=== PATIENT | male | born 1960 | race Caucasian/White ===

== ENCOUNTER 2018-12-05 20:52 | Inpatient (IN) | payer OTHER ==
[2018-12-05 20:56] VITALS: BMI 25.8
--- NOTE | 2018-12-05 21:15 | PDOC ---
History of Present Illness - General Chief Complaint: Alcohol intoxication Stated Complaint: ABDOMINAL PAIN/WITHDRAWL Time Seen by Provider: 12/05/18 21:15 History Source: Patient Exam Limitations: No Limitations - History of Present Illness Initial Comments: 12/05/18 21:37 58 year old male with PMH ETOH dependence, GIB, asthma BIBA to ED from [facility] for LLQ pain since 0600 today. Pt reported that his pain is constant, non- radiating, aggravated by movement, alleviated by rest, described as a pressure. Pt admitted to nausea/vomiting with ETOH use x7 days. Pt reported diarrhea x7 days, loose, denied blood. Pt denied chest pain, shortness of breath. Pt reported he went to [facility] today for detox, was sent to [facility], then after being at [facility] all day was told there are no beds, and was sent to ED for evaluation. ETOH - 20 beers a day, last drink yesterday Past History - Past Medical History Allergies/Adverse Reactions: Allergies Allergy/AdvReac Type Severity Reaction Status Date / Time No Known Allergies Allergy Verified 12/05/18 18:59 Home Medications: Ambulatory Orders Budesonide/Formeterol Fumarate [SYMBICORT 160/4.5mcg -] 2 puff IH BID inhaler 12/07/18 Folic Acid - 1 mg PO DAILY tablet 12/07/18 LORazepam [Ativan] 0.5 mg PO Q4H PRN tablet MDD 3 12/07/18 LORazepam [Ativan] 0.5 mg PO Q6H 1 Days tablet MDD 2 12/07/18 LORazepam [Ativan] 1 mg PO 0500,1100,1700,2300 tablet MDD 4 12/07/18 Levofloxacin [Levaquin] 500 mg PO Q24H #6 tablet 12/07/18 Multivitamins [Multivit ([facility] Formul[facility])] 1 tab PO DAILY tab 12/07/18 Pantoprazole Sodium [Protonix -] 40 mg PO DAILY #30 tablet.ec 12/07/18 Thiamine HCl [Vitamin B-1] 100 mg PO DAILY #30 tablet 12/07/18 metroNIDAZOLE [Flagyl -] 500 mg PO Q8H #6 tablet 12/07/18 Anemia: No Asthma: Yes Cancer: No Cardiac Disorders: No CVA: No COPD: No CHF: No Dementia: No Diabetes: No GI Disorders: Yes (GI bleed 2 years ago ETOH ) Disorders: No HTN: No Hypercholesterolemia: No Liver Disease: Yes (hep C treared ) Seizures: No Thyroid Disease: No - Suicide/Smoking/Psychosocial Hx Smoking History: Unknown if ever smoked Have you smoked in the past 12 months: No Information on smoking cessation initiated: No Hx Alcohol Use: Yes Drug/Substance Use Hx: No Substance Use Type: Alcohol Hx Substance Use Treatment: Yes ([facility] ten years ago) Review of Systems - Review of Systems Able to Perform ROS?: Yes Comments:: 12/05/18 21:43 General: denied fever, chills, generalized weakness. HEENT: denied sore throat, rhinorrhea, ear pain. Heart: denied chest pain, palpitations, syncope, diaphoresis. Respiratory: denied shortness of breath, cough, sputum production, hemoptysis. Abdomen: admitted to abdominal pain, nausea, vomiting, diarrhea. denied constipation, blood in stool. : denied dysuria, increased urinary frequency, hematuria, urinary incontinence , flank pain. Back: denied back pain. Musculoskeletal: denied joint pain, muscle pain, joint swelling. Neurological: admitted to tremors. denied headache, dizziness, numbness, tingling, weakness. Skin: denied rash, laceration, abrasion. *Physical Exam - Vital Signs Last Vital Signs Temp Pulse Resp BP Pulse Ox 97.9 F 61 20 146/93 99 12/05/18 20:54 12/05/18 20:54 12/05/18 20:54 12/05/18 20:54 12/05/18 20:54 - Physical Exam Comments: 12/05/18 21:43 Constitutional: Well-nourished, Well-developed, appearing stated age. HEENT: head is normocephalic, atraumatic. EOMI. PERRLA. tongue fasciculations. Neck: supple. Full ROM. Heart: regular rhythm. no murmurs, rubs or gallops. Lungs: clear to auscultation bilaterally. no crackles, rhonchi or wheezing. no stridor. Abdomen: soft, flat. tenderness to palpation of LLQ. normal bowel sounds. no rebound, guarding, masses. Extremities: peripheral pulses intact. no lower extremity edema. Neurological: tremors to hands. CN 2-12 grossly intact. moves all four extremities. Psych: awake, alert, oriented x3. follows commands. answers questions appropriately. ED Treatment Course - LABORATORY CBC & Chemistry Diagram: 12/05/18 21:27 12/07/18 05:32 Medical Decision Making - Medical Decision Making 12/05/18 21:44 58 year old male with above PMH presented to ED for LLQ pain, n/v/d, ETOH detox. Initial Vital Signs Temp Pulse Resp BP Pulse Ox 97.9 F 61 20 146/93 99 12/05/18 20:54 12/05/18 20:54 12/05/18 20:54 12/05/18 20:54 12/05/18 20:54 Afebrile No tachycardia. No tachypnea Hypertensive No hypoxia on room air Labs ordered: CBC, CMP, ETOH Imaging ordered: CT abdomen/pelvis with IV contrast Medications ordered: pepcid, maalox, zofran, ativan 2 mg IV once, banana bag EKG performed at 2241: rate 53, regular rhythm, normal axis, normal intervals, no acute ST changes. 12/05/18 22:00 CBC WBC 8.4 K/mm3 (4.0-10.0) 12/05/18 21: RBC 4.36 M/mm3 (4.00-5.60) 12/05/18 21:27 Hgb 12.5 GM/dL (11.7-16.9) 12/05/18 21: Hct 37.2 % (35.4-49) 12/05/18 21: MCV 85.3 fl (80-96) 12/05/18 21: MCH 28.7 pg (25.7-33.7) 12/05/18 21: MCHC 33.6 g/dl (32.0-35.9) 12/05/18 21: RDW 15.4 % (11.9-15.9) 12/05/18 21: Plt Count 295 K/MM3 (134-434) 12/05/18 21: MPV 7.4 fl (7.5-11.1) L 12/05/18 21:27 Absolute Neuts (auto) 5.4 K/mm3 (1.5-8.0) 12/05/18 21:27 Neutrophils % 64.2 % (42.8-82.8) 12/05/18 21:27 Lymphocytes % 22.2 % (8-40) 12/05/18 21:27 Monocytes % 9.8 % (3.8-10.2) 12/05/18 21:27 Eosinophils % 2.6 % (0-4.5) 12/05/18 21:27 Basophils % 1.2 % (0-2.0) 12/05/18 21: Nucleated RBC % 0 % (0-0) 12/05/18 21:27 No leukocytosis. No anemia. 12/05/18 22:08 CMP Sodium 140 mmol/L (136-145) 12/05/18 21:27 Potassium 3.3 mmol/L (3.5-5.1) L 12/05/18 21: Chloride 106 mmol/L (98-107) 12/05/18 21: Carbon Dioxide 26 mmol/L (21-32) 12/05/18 21: Anion Gap 9 MMOL/L (8-16) 12/05/18 21:27 BUN 8.6 mg/dL (7-18) 12/05/18 21:27 Creatinine 0.8 mg/dL (0.55-1.3) 12/05/18 21:27 Est GFR (CKD-EPI)AfAm 114.13 12/05/18 21:27 Est GFR (CKD-EPI)NonAf 98.47 12/05/18 21:27 Random Glucose 89 mg/dL (74-106) 12/05/18 21:27 Calcium 8.8 mg/dL (8.5-10.1) 12/05/18 21:27 Magnesium 2.2 mg/dL (1.8-2.4) 12/05/18 21:27 Total Bilirubin 0.5 mg/dL (0.2-1) 12/05/18 21:27 AST 94 U/L (15-37) H 12/05/18 21:27 ALT 121 U/L (13-61) H 12/05/18 21:27 Alkaline Phosphatase 90 U/L (45-117) 12/05/18 21:27 Total Protein 7.8 g/dl (6.4-8.2) 12/05/18 21:27 Albumin 3.7 g/dl (3.4-5.0) 12/05/18 21:27 Lipase 192 U/L (73-393) 12/05/18 21:27 Mild hypokalemia - pt is receiving IV fluids No DAVID Transaminitis Lipase wnl ETOH serum negative. CXR my and Dr. England's read: no infiltrate. no cardiomegaly. no free air. hiatal hernia containing bowel. -Pending official report 12/05/18 23:[address] Kraft about the case, who will be admitting the patient. He recommended Valium 5 mg IM once. Above ordered. 12/06/18 00:25 Pharmacy reported no Valium in the hospital. Admitting team informed. Medications ordered: Librium 50 mg PO once 12/07/18 02:00 Pt signed out to Dr. Daly, IM resident, who will assume care of the patient. 12/07/18 16:07 Follow up: CXR report: Chest: Abdominal pain. Alcohol withdrawal There are no prior studies for comparison. There is an elevated left hemidiaphragm with some minimal atelectasis at the left base but no sign of infiltrate or failure. The mediastinum is not widened. The bones and soft tissues are intact. Correlation recommended. Reported By: Derek Ortiz MD 12/06/[address] abdomen/pelvic report: [id number] CT/ABDOMEN PELVIS CT WITH CONTR Clinical history: 58-year-old man with lower quadrant pain and diarrhea. Comparison: None. Contiguous transaxial images were obtained from the diaphragmatic domes and pubic symphysis after the administration of IV contrast. Sagittal and coronal reconstructions were performed. Lung bases: Elevated left diaphragm with platelike atelectasis above. 2.5 mm right middle lobe nodule on image 20 of series #4. Follow as per Fleischner Society criteria. Bone: Bone island in right lumbar pedicle. Significant disc space narrowing L2-L3. Correlate clinically. Liver: There is an element of a fatty liver. Gallbladder: Negative. Biliary tree: Negative. Spleen: Accessory spleen. Pancreas: Negative. Adrenals: Negative. Kidneys: Negative. Pelvis: Negative. Bowel: Mild sigmoid diverticulosis. No CT evidence of diverticulitis. Wall thickening involving the distal sigmoid and rectum consistent with distal proctocolitis. Normal appendix. Other: Small hiatal hernia. Local hernia with fat. Impression: Suspect mild proctocolitis. Other findings as above. Study was initially read by Olivia. Addendum: Discussed with Dr. Win in the ER at 8:58 AM. Reported By: Derek Rojas MD 12/06/18 0900 *DC/Admit/Observation/Transfer Diagnosis at time of Disposition: Alcohol withdrawal, Abdominal pain - Discharge Dispostion Condition at time of disposition: Stable Decision to Admit order: Yes - Referrals - Patient Instructions - Post Discharge Activity
[2018-12-05] MEDS ORDERED: FOLIC ACID INJECTION - 1 MG, THIAMINE HCL 100 MG, MULTIVIT INJECTION ADULT 10 ML in SOD... IVPB ONE (21:16)
[2018-12-05] MEDS ORDERED: ONDANSETRON 4 MG/2 ML VIAL IVPUSH ONE (21:37)
[2018-12-05] MEDS ORDERED: FAMOTIDINE 20 MG/50 ML IVPB 20 MG/50 ML MG IVPB ONE ×2 (21:37→21:51)
[2018-12-05] MEDS ORDERED: MAG HYDROX/AL HYDROX/SIMETH 30 ML UNIT-DOSE CUP PO ONE (21:37)
[2018-12-05 21:38] LABS: BASO % 1.2 % (0-2.0); EOS % 2.6 % (0-4.5); HEMATOCRIT 37.2 % (35.4-49); HEMOGLOBIN 12.5 GM/dL (11.7-16.9); LYMPH % 22.2 % (8-40); MCH 28.7 pg (25.7-33.7); MCHC 33.6 g/dl (32.0-35.9); MEAN CELL VOLUME 85.3 fl (80-96); MEAN PLT VOLUME 7.4 fl (7.5-11.1); MONO % 9.8 % (3.8-10.2); NEUT % 64.2 % (42.8-82.8); PLATELET COUNT 295 K/MM3 (134-434); RBC 4.36 M/mm3 (4.00-5.60); RDW 15.4 % (11.9-15.9); WHITE BLOOD COUNT 8.4 K/mm3 (4.0-10.0)
[2018-12-05 21:48] LABS: INR 0.96 (0.83-1.09); PROTHROMBIN TIME (PATIENT) 11.3 SEC (9.7-13.0)
[2018-12-05] MEDS ORDERED: LORazepam 2 MG/ML SDV VIAL ONE (21:50)
[2018-12-05] MEDS ORDERED: MAG HYDROX/AL HYDROX/SIMETH 30 ML UNIT-DOSE CUP ONE (21:50)
[2018-12-05 21:51] LABS: ACTIVATED PTT 34.8 SECONDS (25.2-36.5)
[2018-12-05] MEDS ORDERED: ONDANSETRON 4 MG/2 ML VIAL ONE (21:51)
[2018-12-05 22:08] LABS: ALBUMIN 3.7 g/dl (3.4-5.0); BILIRUBIN,TOTAL 0.5 mg/dL (0.2-1); BLOOD UREA NITROGEN 8.6 mg/dL (7-18); CALCIUM 8.8 mg/dL (8.5-10.1); CREATININE 0.8 mg/dL (0.55-1.3); MAGNESIUM 2.2 mg/dL (1.8-2.4); POTASSIUM 3.3 mmol/L (3.5-5.1); TOT PROT 7.8 g/dl (6.4-8.2)
[2018-12-05] MEDS ORDERED: SODIUM CHLORIDE 1,000 ML IV STA (22:16)
--- NOTE | 2018-12-05 22:37 | PDOC ---
Documentation entered by Catalina Tarango SCRIBE, acting as scribe for Bridgette England DO. Bridgette England DO: This documentation has been prepared by the Sukhdeep goss Mackenzie, SCRIBE, under my direction and personally reviewed by me in its entirety. I confirm that the documentation accurately reflects all work , treatment, procedures, and medical decision making performed by me. Attending Attestation - Resident Resident Name: JoanaAlva - ED Attending Attestation I have performed the following: I have examined & evaluated the patient, The case was reviewed & discussed with the resident, I agree w/resident's findings & plan, Exceptions are as noted - HPI HPI: The patient is a 53 year old male, with a significant PMH of gastrointestinal bleeding, asthma, and ETOH dependence, who presents to the emergency department with left lower quadrant pain starting at approximately 6PM today. Patient describes his pain as a constant pressure localized to his left lower quadrant, alleviated when at rest and aggravated with movement. Patient also reports nausea, diarrhea, and vomiting accompanied by his alcohol use for the past 7 days. The patient denies hematochezia, chest pain, shortness of breath, headache and dizziness. Denies fever, chills, and constipation. Denies dysuria, frequency, urgency and hematuria. Allergies: NKA Past surgical history: None reported Social history: Significant alcohol use. No reported drug or tobacco use. 12/05/18 22:44 - Physicial Exam PE: GENERAL: Awake, alert, and fully oriented, speaking in full sentences, in no acute distress. HEAD: No signs of trauma EYES: PERRLA, EOMI, sclera anicteric, conjunctiva clear ENT: (+)Tongue fasciculations. (+)Mild dry mucosa. Auricles normal inspection, hearing grossly normal, nares patent, oropharynx clear without exudates. NECK: Normal ROM, supple, no lymphadenopathy, JVD, or masses LUNGS: Breath sounds equal, clear to auscultation bilaterally. No wheezes, and no crackles HEART: Regular rate and rhythm, normal S1 and S2, no murmurs, rubs or gallops ABDOMEN: (+)LLQ pain. Soft, normoactive bowel sounds. No guarding, no rebound. No masses BACK: (+)Mild left CVA tenderness. EXTREMITIES: Normal range of motion, no edema. No clubbing or cyanosis. No cords, erythema, or tenderness NEUROLOGICAL: (+)Tremulous. Cranial nerves II through XII grossly intact. Normal speech, normal gait SKIN: Warm, Dry, normal turgor, no rashes or lesions noted. 12/05/18 22:44 - Medical Decision Making 12/05/18 22:34 I, Dr. Bridgette England, DO, attest that this document has been prepared under my direction and personally reviewed by me in its entirety. I further attest, that it accurately reflects all work, treatment, procedures and medical decision -making performed by me. 12/05/18 22:34 a/p: 58yo male with 3 week hx of drinking 20 16ounce etoh beverages per day with request for detox and with LLQ pain -n/v with etoh use, no blood or bile -LLQ pain, last normal bm yesterday, loose stool today -hx of ? variceal bleed in the past, treated with endoscopy at a hospital in [place] -denies blood in vomitus or stool -pt arrives in etoh withdrawal- tongue fasciculations/tremulous -was at [facility] waiting for detox all day -pt with hx of etoh withdrawal, but no hx of seizures -last rehab was 2012 -will send labs, ct abd/pelvis for LLQ pain, ua -will give banana bag, ativan for etoh withdrawal -will give gi meds -pt will need admission for etoh withdrawal 12/05/18 23:39 labs reviewed mildly elevated lft pt pending ct imaging case discussed with Dr. Kraft who accepts pt to service for etoh withdrawal 12/05/18 23:48 cxr shows hiatal hernia Heart Score/ECG Review - ECG Intrepretation Comment:: 12/05/18 23:40 sinus nate at 53, nl axis, nl interval, no acute st/t wave findings
[2018-12-05] MEDS ORDERED: diazePAM CARPU-JECT 10 MG/2 ML DISP.SYRIN IM ONE (23:29)
--- NOTE | 2018-12-05 23:45 | PN ---
Teaching Attending Note Name of Resident: Fredo Daly ATTENDING PHYSICIAN STATEMENT I saw and evaluated the patient. I reviewed the resident's note and discussed the case with the resident. I agree with the resident's findings and plan as documented. SUBJECTIVE: Seen and examined; please refer to resident note for further historical details. Briefly, this is a 58 y/o male with a PMH significant for asthma and EtOH abuse presents to the ER for EtOH WD. His last drink was yesterday and he wants to stop drinking. Has been to rehab before. No SI/HI. Never had seizures/been intubated for WD but has experienced WD sx. He was drinking >20 beers/day for >2 weeks at home due to stress and intermittently abuses alcohol with more of a binge pattern. He does have a +CIWA of ~5 in the ER when I enocountered him and he endorses stress at home to contribute to his presentation. Denies any other substances of abuse. Will be placed on med surg. He was initially complaining of LLQ tenderness but this has completely resolved; this was associated with dry heaves without bleeding. Occasional watery diarrhea at home. 10 sys ROS done and negative aside from HPI PMH, PSH, FH, SH reviewed Home Medications Medication Instructions Recorded SYMBICORT 160/4.5mcg - 90 mcg IH PRN PRN 12/05/18 OBJECTIVE: VS, labs, imaging reviewed NAD, AAO, resting comfortably in bed NC AT EOMI PERRLA RRR s1/2 no mgr NT ND +BS CN2-12 wnl, no fnd CIWA 5. Slightly axious. No SI/HI. Aver[employer]e insight EKG reviewed CXR reviewed; large hiatal hernia noted ASSESSMENT AND PLAN: Patient presents for alcohol WD after binging for 2 weeks 1) EtOH WD -Monitor CIWA; PRN Ativan protocol. -Thiamine, folate, multivitamin. 75cc/hr LR overnight -Control nausea and vomiting. Monitor for diarrhea-may have been associated with the actual drinking as he hasn't had it since he arrived. -Detox eval in the AM 2) Hiatal hernia -Noted on CXR; consider OP referral 3) Hx Asthma -Continue home symbicort 4) Hx GIB -Control wretching sx; PRN zofran. Consult GI should he have further vomiting. 5) Transaminitis -Likely due to alcohol consumption
[2018-12-06] MEDS ORDERED: chlordiazePOXIDE HCL 25 MG CAPSULE PO ONE (00:26)
[2018-12-06] MEDS ORDERED: chlordiazePOXIDE HCL 25 MG CAPSULE ONE (00:33)
[2018-12-06 00:58] LABS: EPI CELLS 0.6 /HPF (0-5/HPF); HYALINE CASTS 6 /lpf (0-8); URINE APPEARANCE CLEAR; URINE BACTERIA 1.7 /hpf (NEGATIVE); URINE BILIRUBIN NEGATIVE (NEGATIVE); URINE COLOR YELLOW; URINE GLUCOSE (UA) NEGATIVE (NEGATIVE); URINE KETONE TRACE (NEGATIVE); URINE LEUK ESTERASE TRACE (NEGATIVE); URINE NITRITE NEGATIVE (NEGATIVE); URINE PROTEIN NEGATIVE (NEGATIVE); URINE RBC 1 /hpf (0-4); URINE UROBILINOGEN 0.2 mg/dL (0.2-1.0); URINE WBC 8 /hpf (0-5)
[2018-12-06] MEDS ORDERED: ONDANSETRON 4 MG/2 ML VIAL IVPUSH PRN (01:17)
--- NOTE | 2018-12-06 01:18 | HP ---
CHIEF COMPLAINT: LLQ Pain, EtoH withdrawal PCP: HISTORY OF PRESENT ILLNESS: Pt. is a 58 y.o. M w/ PMHx. of Depression/Anxiety, Asthma, Hepatitis C (treated) and EtOH abuse presents for EtOH withdrawal and LLQ Pain. Pt. was sent to [facility] because of a lack of beds at [facility] facility and then sent here because of a lack of beds at [facility]. Pt. states that he drinks about twenty 16 Oz. cans of beer each day for the last few weeks. Pt. states that he was dry having earlier but that nothing came up and denies any recent hematemesis. Pt. states that 2 years ago he was vomiting blood and that they did a "procedure and stopped the bleeding from his stomach. " Pt. endorses non-bloody diarrhea of 3 water and loose BMs for the last 7 days. Pt. denies any fever, dizziness, nausea, chest pain, shortness of breath, numbness/tingling, abdominal pain, hallucinations, paresthesias, or changes in urination. ER course was notable for: (1) (2) (3) Recent Travel: PAST MEDICAL HISTORY: As above PAST SURGICAL HISTORY: L. Knee meniscus repair Social History: Smoking: Denies Alcohol: 20 cans of 16 Oz. beer per day Drugs: Denies Allergies No Known Allergies Allergy (Verified 12/05/18 18:59) HOME MEDICATIONS: Home Medications Medication Instructions Recorded SYMBICORT 160/4.5mcg - 90 mcg IH PRN PRN 12/05/18 REVIEW OF SYSTEMS As above PHYSICAL EXAMINATION Vital Signs - 24 hr 12/05/18 20:54 Temperature 97.9 F Pulse Rate 61 Respiratory 20 Rate Blood Pressure 146/93 O2 Sat by Pulse 99 Oximetry (%) GENERAL: Awake, alert, and oriented to name only, in no acute distress. HEAD: Normal with no signs of trauma. EYES: Pupils equal, round and reactive to light, extraocular movements intact, sclera anicteric, conjunctiva clear. EARS, NOSE, THROAT: Ears normal, nares patent, oropharynx clear without exudates. Moist mucous membranes. NECK: Normal range of motion, supple without lymphadenopathy, JVD, or masses. LUNGS: Decreased breath sound on LLL, clear to auscultation bilaterally. No wheezes, and no crackles. No accessory muscle use. HEART: Regular rate and rhythm, normal S1 and S2 without murmur ABDOMEN: Soft, nontender, not distended, normoactive bowel sounds, no guarding, no rebound, no masses. No hepatomegaly or splenomegaly. MUSCULOSKELETAL: Normal range of motion at all joints. No bony deformities or tenderness. No CVA tenderness. UPPER EXTREMITIES: 2+ radial pulses, warm, well-perfused. No cyanosis. No clubbing. No peripheral edema. LOWER EXTREMITIES: 2+dorsal pedal pulses, warm, well-perfused. No calf tenderness. No peripheral edema. NEUROLOGICAL: Normal speech. PSYCHIATRIC: Cooperative. Good eye contact. Appropriate mood and affect. SKIN: Warm, dry, normal turgor, no rashes or lesions noted, normal capillary refill. Laboratory Results - last 24 hr 12/05/18 12/05/18 12/05/18 21:27 21:27 21:27 WBC 8.4 RBC 4.36 Hgb 12.5 Hct 37.2 MCV 85.3 MCH 28.7 MCHC 33.6 RDW 15.4 Plt Count 295 MPV 7.4 L Absolute Neuts (auto) 5.4 Neutrophils % 64.2 Lymphocytes % 22.2 Monocytes % 9.8 Eosinophils % 2.6 Basophils % 1.2 Nucleated RBC % 0 PT with INR 11.30 INR 0.96 PTT (Actin FS) 34.8 Sodium 140 Potassium 3.3 L Chloride 106 Carbon Dioxide 26 Anion Gap 9 BUN 8.6 Creatinine 0.8 Est GFR (CKD-EPI)AfAm 114.13 Est GFR (CKD-EPI)NonAf 98.47 Random Glucose 89 Calcium 8.8 Magnesium 2.2 Total Bilirubin 0.5 AST 94 H ALT 121 H Alkaline Phosphatase 90 Total Protein 7.8 Albumin 3.7 Lipase 192 Urine Color Urine Appearance Urine pH Ur Specific [place] Urine Protein Urine Glucose (UA) Urine Ketones Urine Blood Urine Nitrite Urine Bilirubin Urine Urobilinogen Ur Leukocyte Esterase Urine WBC (Auto) Urine RBC (Auto) Urine Casts (Auto) U Epithel Cells (Auto) Urine Bacteria (Auto) Alcohol, Quantitative 12/05/18 12/06/18 21:27 00:35 WBC RBC Hgb Hct MCV MCH MCHC RDW Plt Count MPV Absolute Neuts (auto) Neutrophils % Lymphocytes % Monocytes % Eosinophils % Basophils % Nucleated RBC % PT with INR INR PTT (Actin FS) Sodium Potassium Chloride Carbon Dioxide Anion Gap BUN Creatinine Est GFR (CKD-EPI)AfAm Est GFR (CKD-EPI)NonAf Random Glucose Calcium Magnesium Total Bilirubin AST ALT Alkaline Phosphatase Total Protein Albumin Lipase Urine Color Yellow Urine Appearance Clear Urine pH 6.0 Ur Specific [place] 1.023 Urine Protein Negative Urine Glucose (UA) Negative Urine Ketones Trace H Urine Blood Negative Urine Nitrite Negative Urine Bilirubin Negative Urine Urobilinogen 0.2 Ur Leukocyte Esterase Trace Urine WBC (Auto) 8 Urine RBC (Auto) 1 Urine Casts (Auto) 6 U Epithel Cells (Auto) 0.6 Urine Bacteria (Auto) 1.7 Alcohol, Quantitative < 3.0 ASSESSMENT/PLAN: Pt. is a 58 y.o. M w/ PMHx. of Depression/Anxiety, Asthma, Hepatitis C (treated ) and EtOH abuse presents for EtOH withdrawal and LLQ Pain #EtOH Withdrawal c/w Ativan Protocol given elevated LFTs CIWA score: 13-->9 CT AP: slightly prominent prostate, no acute pathology LLQ pain resolved after administration of IVF, Mylanta and famotidine c/w IV Protonix 40mg c/w Thiamine, Folic Acid and MVI IVF Fall precautions HOB elevated to 35 degrees trend LFTs Monitor for wretching and give PRN Zofran given Hx. of UGI bleed in 2017, concern for possible varices, please follow up with Hx. of previous GI bleed EKG- NSR, HR 53, QTc: 424 #Asthma c/w Symbicort 160/4.5 #FEN NS @ 75ml/hr monitor electrolytes and replete as needed--> repleted K, f/u Mg Regular Diet #DVT Ppx. Hep SQ Visit type - Emergency Visit Emergency Visit: Yes ED Registration Date: 12/05/18 Care time: The patient presented to the Emergency Department on the above date and was hospitalized for further evaluation of their emergent condition. - New Patient This patient is new to me today: Yes Date on this admission: 12/05/18 - Critical Care Critical Care patient: No
[2018-12-06] MEDS: SODIUM CHLORIDE 1,000 ML IV SCH (01:38)
[2018-12-06] MEDS: HEPARIN NA (PORCINE) 5,000 UNITS/ML 1ML VIAL SQ SCH ×3 (01:39→18:29)
[2018-12-06] MEDS ORDERED: POTASSIUM CHLORIDE TABS 20 MEQ TABLET.ER (FP) PO ONE ×2 (02:24→02:43)
[2018-12-06] MEDS ORDERED: SYMBICORT IH PRN (03:32)
[2018-12-06 09:57] LABS: ALBUMIN 3.3 g/dl (3.4-5.0); BILIRUBIN,TOTAL 0.6 mg/dL (0.2-1); BLOOD UREA NITROGEN 7.2 mg/dL (7-18); CALCIUM 8.5 mg/dL (8.5-10.1); CREATININE 0.7 mg/dL (0.55-1.3); PHOSPHOROUS 2.8 mg/dL (2.5-4.9); POTASSIUM 4.2 mmol/L (3.5-5.1); TOT PROT 7.1 g/dl (6.4-8.2)
[2018-12-06] MEDS: PANTOPRAZOLE SODIUM 40 MG VIAL IVPUSH SCH (10:30)
[2018-12-06] MEDS: MULTIVITAMINS (DAILY MVI) TABLET (FP) PO SCH (10:30)
[2018-12-06] MEDS: FOLIC ACID 1 MG TABLET (FP) PO SCH (10:30)
[2018-12-06] MEDS: BUDESONIDE/FORMETEROL FUMARATE 160/4.5 mcg INHALER IH SCH (10:30)
[2018-12-06] MEDS: THIAMINE HCL 200 MG/2 ML VIAL IVPB SCH (10:40)
[2018-12-06] MEDS: LORazepam 1 MG TABLET PO PRN ×3 (11:23→23:58)
--- NOTE | 2018-12-06 11:41 | EKG ---
Test Reason : Blood Pressure : / mmHG Vent. Rate : 053 BPM Atrial Rate : 053 BPM P-R Int : 164 ms QRS Dur : 094 ms QT Int : 444 ms P-R-T Axes : 025 034 043 degrees QTc Int : 416 ms SINUS BRADYCARDIA MINIMAL VOLTAGE CRITERIA FOR LVH, MAY BE NORMAL VARIANT NO PREVIOUS ECGS AVAILABLE Confirmed by ARCADIO FLORES MD ([id number]) on 12/06/2018 11:41:41 AM Referred By: Confirmed By:ARCADIO FLORES MD
--- NOTE | 2018-12-06 17:40 | PN ---
Physical Exam: SUBJECTIVE: Patient seen and examined at bedside. Denies any chest pain, shortness of breath, or increased sweating/tremors. OBJECTIVE: Vital Signs Period Temp Pulse Resp BP Sys/Mendoza Pulse Ox Last 24 Hr 97.9 F 60-81 16-20 119-148/85-93 97-99 GENERAL: NAD AAOx3 HEAD: Normal with no signs of trauma. EYES: EOMI Sclera Clear ENT: MMM LUNGS: CTAB HEART: RRR S1S2 ABDOMEN: Soft,NDNT EXTREMITIES: 2+ pulses, warm, well-perfused, no edema. NEUROLOGICAL: Cranial nerves II through XII grossly intact. Normal speech. No hand tremors appreciated PSYCH: Normal mood, normal affect. Laboratory Results - last 24 hr 12/05/18 12/05/18 12/05/18 21:27 21:27 21:27 WBC 8.4 RBC 4.36 Hgb 12.5 Hct 37.2 MCV 85.3 MCH 28.7 MCHC 33.6 RDW 15.4 Plt Count 295 MPV 7.4 L Absolute Neuts (auto) 5.4 Neutrophils % 64.2 Lymphocytes % 22.2 Monocytes % 9.8 Eosinophils % 2.6 Basophils % 1.2 Nucleated RBC % 0 PT with INR 11.30 INR 0.96 PTT (Actin FS) 34.8 Sodium 140 Potassium 3.3 L Chloride 106 Carbon Dioxide 26 Anion Gap 9 BUN 8.6 Creatinine 0.8 Est GFR (CKD-EPI)AfAm 114.13 Est GFR (CKD-EPI)NonAf 98.47 Random Glucose 89 Calcium 8.8 Phosphorus Magnesium 2.2 Total Bilirubin 0.5 AST 94 H ALT 121 H Alkaline Phosphatase 90 Total Protein 7.8 Albumin 3.7 Lipase 192 Urine Color Urine Appearance Urine pH Ur Specific Cheney Urine Protein Urine Glucose (UA) Urine Ketones Urine Blood Urine Nitrite Urine Bilirubin Urine Urobilinogen Ur Leukocyte Esterase Urine WBC (Auto) Urine RBC (Auto) Urine Casts (Auto) U Epithel Cells (Auto) Urine Bacteria (Auto) Alcohol, Quantitative 12/05/18 12/06/18 12/06/18 21:27 00:35 08:56 WBC RBC Hgb Hct MCV MCH MCHC RDW Plt Count MPV Absolute Neuts (auto) Neutrophils % Lymphocytes % Monocytes % Eosinophils % Basophils % Nucleated RBC % PT with INR INR PTT (Actin FS) Sodium 142 Potassium 4.2 Chloride 109 H Carbon Dioxide 28 Anion Gap 5 L BUN 7.2 Creatinine 0.7 Est GFR (CKD-EPI)AfAm 120.56 Est GFR (CKD-EPI)NonAf 104.02 Random Glucose 95 Calcium 8.5 Phosphorus 2.8 Magnesium Total Bilirubin 0.6 AST 82 H ALT 112 H Alkaline Phosphatase 87 Total Protein 7.1 Albumin 3.3 L Lipase Urine Color Yellow Urine Appearance Clear Urine pH 6.0 Ur Specific Cheney 1.023 Urine Protein Negative Urine Glucose (UA) Negative Urine Ketones Trace H Urine Blood Negative Urine Nitrite Negative Urine Bilirubin Negative Urine Urobilinogen 0.2 Ur Leukocyte Esterase Trace Urine WBC (Auto) 8 Urine RBC (Auto) 1 Urine Casts (Auto) 6 U Epithel Cells (Auto) 0.6 Urine Bacteria (Auto) 1.7 Alcohol, Quantitative < 3.0 Active Medications Generic Name Dose Route Start Last Admin Trade Name Freq PRN Reason Stop Dose Admin Budesonide/Formoterol Fumarate 2 puff 12/06/18 10:00 12/06/18 10:30 Symbicort 160/4.5mcg - IH 2 puff BID LEONOR Administration Folic Acid 1 mg 12/06/18 10:00 12/06/18 10:30 Folic Acid - PO 1 mg DAILY LEONOR Administration Heparin Sodium (Porcine) 5,000 unit 12/06/18 02:00 12/06/18 11:21 Heparin - SQ 5,000 unit Q8H-IV LEONOR Administration Sodium Chloride 1,000 mls @ 75 mls/hr 12/06/18 01:15 12/06/18 01:38 Normal Saline - IV 75 mls/hr ASDIR LEONOR Administration Lorazepam 0.5 mg 12/08/18 05:00 Ativan - PO 12/09/18 05:01 Q6H LEONOR Lorazepam 0.5 mg 12/08/18 05:00 Ativan - PO 12/09/18 05:00 Q4H PRN Symptoms of Withdrawal Lorazepam 1 mg 12/07/18 05:00 Ativan - PO 12/07/18 23:01 0500,1100,1700,2300 LEONOR Lorazepam 1 mg 12/06/18 01:14 12/06/18 11:23 Ativan - PO 12/08/18 05:00 1 mg Q4H PRN Administration Symptoms of Withdrawal Multivitamins/Minerals/Vitamin C 1 tab 12/06/18 10:00 12/06/18 10:30 Tab-A-Vit - PO 1 tab DAILY LEONOR Administration Ondansetron HCl 4 mg 12/06/18 01:17 Zofran Injection IVPUSH Q8H PRN NAUSEA Pantoprazole Sodium 40 mg 12/06/18 10:00 12/06/18 10:30 Protonix Iv IVPUSH 40 mg DAILY LEONOR Administration Thiamine HCl 200 mg 12/06/18 10:00 12/06/18 10:40 Vitamin B1 Injection - IVPB 200 mg DAILY LEONOR Administration ASSESSMENT/PLAN: Pt. is a 58 y.o. M w/ PMHx. of Depression/Anxiety, Asthma, Hepatitis C (treated ) and EtOH abuse presents for EtOH withdrawal and LLQ Pain #EtOH Withdrawal Ativan Protocol given elevated LFTs Low Discriminate Function CT AP: Proctocolitis----> Flagyl and Levaquin initiated QTC 419. IV Protonix 40mg Thiamine, Folic Acid and MVI Fall precautions HOB elevated #Alcoholic Hepatitis -Trend LFTs -Ativan instead of librium #Asthma c/w Symbicort 160/4.5 #FEN NS @ 75ml/hr monitor electrolytes Regular Diet #DVT Ppx. Hep SQ Dispo: Tentative transfer to Rehab facility pending bed availability Visit type - Emergency Visit Emergency Visit: Yes ED Registration Date: 12/05/18 Care time: The patient presented to the Emergency Department on the above date and was hospitalized for further evaluation of their emergent condition. - New Patient This patient is new to me today: Yes Date on this admission: 12/06/18 - Critical Care Critical Care patient: No - Discharge Referral Referred to [facility] Med P.C.: No
--- NOTE | 2018-12-06 18:26 | PN ---
Teaching Attending Note Name of Resident: Rad Patel ATTENDING PHYSICIAN STATEMENT I saw and evaluated the patient. I reviewed the resident's note and discussed the case with the resident. I agree with the resident's findings and plan as documented. SUBJECTIVE: seen around 10 am feels a little better. no Abd pain, nO ABRAHAM , no diarrhea ( diarrhea at home ) . No N/V OBJECTIVE: NAD, no nystagmus . CV: RRR, no MRG Lungs: CTAB Abd: obese, soft, TTP in LLQ. NL BS . No rebound tenderness or guarding Ext : No edema ASSESSMENT AND PLAN: 58 y/o man with h/o ETOH abuse , h/o upper GI bleed, Hiatal hernia, asthma, and Charcot's foot who presented with alcohol withdrawal 1- ETOH withdrawal : no signs of Wernicke's . was given thiamin before feeding - cont ativan protocol . - cont folic and thiamin 2- Alcoholic hepatitis : low discriminant funcitn . Monitor 3- proctocolitis : On CT scan , diarrhea has stopped ( only at home ) , and has LLQ tenderness. - start levaquin and flagyl - QTC 419 4- hepatin sq HLOC
[2018-12-06] MEDS ORDERED: LORazepam 2 MG/ML SDV VIAL ONE (18:33)
[2018-12-07] MEDS: BUDESONIDE/FORMETEROL FUMARATE 160/4.5 mcg INHALER IH SCH ×3 (01:45→21:11)
[2018-12-07] MEDS: SODIUM CHLORIDE 1,000 ML IV SCH (01:45)
[2018-12-07] MEDS: HEPARIN NA (PORCINE) 5,000 UNITS/ML 1ML VIAL SQ SCH ×3 (01:47→17:12)
[2018-12-07] MEDS: LORazepam 1 MG TABLET PO SCH ×3 (05:51→16:21)
[2018-12-07 07:32] LABS: INR 1.01 (0.83-1.09); PROTHROMBIN TIME (PATIENT) 11.9 SEC (9.7-13.0)
[2018-12-07 07:45] LABS: ALBUMIN 3.2 g/dl (3.4-5.0); BILIRUBIN,TOTAL 0.4 mg/dL (0.2-1); BLOOD UREA NITROGEN 10.3 mg/dL (7-18); CREATININE 0.9 mg/dL (0.55-1.3); MAGNESIUM 2.2 mg/dL (1.8-2.4); PHOSPHOROUS 3.4 mg/dL (2.5-4.9); POTASSIUM 3.9 mmol/L (3.5-5.1); TOT PROT 6.9 g/dl (6.4-8.2)
--- NOTE | 2018-12-07 08:52 | PN ---
Physical Exam: SUBJECTIVE: Patient seen and examined at bedside. Denies tremors, diaphoresis, hallucinations. Improved abd pain. No acute complaints. OBJECTIVE: Vital Signs Period Temp Pulse Resp BP Sys/Mendoza Pulse Ox Last 24 Hr 98.3 F-98.8 F 56-81 16-18 118-133/74-89 99-99 GENERAL: NAD AAOx3 HEAD: Normal with no signs of trauma. EYES: EOMI Sclera Clear ENT: MMM LUNGS: CTAB HEART: RRR S1S2 ABDOMEN: Soft,NDNT EXTREMITIES: 2+ pulses, warm, well-perfused, no edema. NEUROLOGICAL: Cranial nerves II through XII grossly intact. Normal speech. No hand tremors appreciated PSYCH: Normal mood, normal affect. Laboratory Results - last 24 hr 12/06/18 12/07/18 12/07/18 08:56 05:32 05:32 PT with INR 11.90 INR 1.01 Sodium 142 140 Potassium 4.2 3.9 Chloride 109 H 106 Carbon Dioxide 28 28 Anion Gap 5 L 5 L BUN 7.2 10.3 Creatinine 0.7 0.9 Est GFR (CKD-EPI)AfAm 120.56 108.73 Est GFR (CKD-EPI)NonAf 104.02 93.82 Random Glucose 95 84 Calcium 8.5 8.0 L Phosphorus 2.8 3.4 Magnesium 2.2 Total Bilirubin 0.6 0.4 AST 82 H 51 H ALT 112 H 89 H Alkaline Phosphatase 87 81 Total Protein 7.1 6.9 Albumin 3.3 L 3.2 L Active Medications Generic Name Dose Route Start Last Admin Trade Name Freq PRN Reason Stop Dose Admin Budesonide/Formoterol Fumarate 2 puff 12/06/18 10:00 12/07/18 01:45 Symbicort 160/4.5mcg - IH Not Given BID LEONOR Folic Acid 1 mg 12/06/18 10:00 12/06/18 10:30 Folic Acid - PO 1 mg DAILY LEONOR Administration Heparin Sodium (Porcine) 5,000 unit 12/06/18 02:00 12/07/18 01:47 Heparin - SQ 5,000 unit Q8H-IV LEONOR Administration Sodium Chloride 1,000 mls @ 75 mls/hr 12/06/18 01:15 12/07/18 01:45 Normal Saline - IV 75 mls/hr ASDIR LEONOR Administration Metronidazole 250 mg in 50 mls @ 50 mls/hr 12/07/18 02:00 12/07/18 01:44 Flagyl 250mg Premixed Ivpb - IVPB 50 mls/hr Q8H-IV LEONOR Administration Levofloxacin 500 mg in 100 mls @ 100 mls/hr 12/06/18 18:30 12/06/18 18:29 Levaquin 500 Mg Premixed Ivpb - IVPB 100 mls/hr Q24H LEONOR Administration Protocol Lorazepam 0.5 mg 12/08/18 05:00 Ativan - PO 12/09/18 05:01 Q6H LEONOR Lorazepam 0.5 mg 12/08/18 05:00 Ativan - PO 12/09/18 05:00 Q4H PRN Symptoms of Withdrawal Lorazepam 1 mg 12/07/18 05:00 12/07/18 05:51 Ativan - PO 12/07/18 23:01 1 mg 0500,1100,1700,2300 LEONOR Administration Lorazepam 1 mg 12/06/18 01:14 12/06/18 23:58 Ativan - PO 12/08/18 05:00 1 mg Q4H PRN Administration Symptoms of Withdrawal Multivitamins/Minerals/Vitamin C 1 tab 12/06/18 10:00 12/06/18 10:30 Tab-A-Vit - PO 1 tab DAILY LEONOR Administration Ondansetron HCl 4 mg 12/06/18 01:17 Zofran Injection IVPUSH Q8H PRN NAUSEA Pantoprazole Sodium 40 mg 12/06/18 10:00 12/06/18 10:30 Protonix Iv IVPUSH 40 mg DAILY LEONOR Administration Thiamine HCl 200 mg 12/06/18 10:00 12/06/18 10:40 Vitamin B1 Injection - IVPB 200 mg DAILY LEONOR Administration ASSESSMENT/PLAN: Pt. is a 58 y.o. M w/ PMHx. of Depression/Anxiety, Asthma, Hepatitis C (treated ) and EtOH abuse presents for EtOH withdrawal and LLQ Pain #EtOH Withdrawal Ativan Protocol given elevated LFTs Low Discriminate Function IV Protonix 40mg Thiamine, Folic Acid and MVI Fall precautions HOB elevated #proctocolitis -per CT a/p -cont levaquin/flagyl -QTc 419 #Alcoholic Hepatitis -LFTs downtrending, continue to monitor -Ativan instead of librium #Asthma c/w Symbicort 160/4.5 #FEN NS @ 75ml/hr monitor electrolytes Regular Diet #DVT Ppx. Hep SQ Dispo: Tentative transfer to Rehab facility pending bed availability Visit type - Emergency Visit Emergency Visit: No - New Patient This patient is new to me today: Yes Date on this admission: 12/07/18 - Critical Care Critical Care patient: No
[2018-12-07] MEDS: PANTOPRAZOLE SODIUM 40 MG VIAL IVPUSH SCH (10:22)
[2018-12-07] MEDS: MULTIVITAMINS (DAILY MVI) TABLET (FP) PO SCH (10:23)
[2018-12-07] MEDS: THIAMINE HCL 200 MG/2 ML VIAL IVPB SCH (10:23)
[2018-12-07] MEDS: FOLIC ACID 1 MG TABLET (FP) PO SCH (10:23)
[2018-12-07] MEDS ORDERED: PT OWN MED DRAWER 7, Y5N ONE ×2 (11:36→16:19)
--- NOTE | 2018-12-07 12:52 | PN ---
Teaching Attending Note Name of Resident: Robert Rinaldi ATTENDING PHYSICIAN STATEMENT I saw and evaluated the patient. I reviewed the resident's note and discussed the case with the resident. I agree with the resident's findings and plan as documented. SUBJECTIVE: no fever or chills. No ABRAHAM , no Abd pain. had 5 episodes of diarrhea yesterday, non this am . OBJECTIVE: NAD, MMM CV: RRR, no MRG Lungs: CTAB Abd: obese, soft, NT. NL BS. No rebound tenderness or guarding Ext: No edema. ASSESSMENT AND PLAN: 58 y/o man with h/o ETOH abuse , h/o upper GI bleed, Hiatal hernia, asthma, and Charcot's foot who presented with alcohol withdrawal 1- ETOH withdrawal: - cont ativan protocol. - cont folic and thiamin 2- Alcoholic hepatitis: improved .monitor 3- Proctocolitis : diarrhea has improved - cont levaquin and flagyl x total of 7 days - if diarrhea recurs, will check c diff 4- heparin SQ HLOC
[2018-12-07] MEDS: LORazepam 1 MG TABLET PO PRN (21:10)
[2018-12-08] MEDS ORDERED: PT OWN MED DRAWER 7, Y5N ONE ×3 (01:11→15:23)
[2018-12-08] MEDS: LORazepam 1 MG TABLET PO SCH (01:20)
[2018-12-08] MEDS: SODIUM CHLORIDE 1,000 ML IV SCH (01:21)
[2018-12-08] MEDS: HEPARIN NA (PORCINE) 5,000 UNITS/ML 1ML VIAL SQ SCH ×3 (01:25→17:04)
[2018-12-08] MEDS ORDERED: LORazepam 0.5 MG TABLET PO PRN (05:00)
[2018-12-08] MEDS: LORazepam 0.5 MG TABLET PO SCH ×3 (06:28→16:25)
[2018-12-08 07:23] LABS: ALBUMIN 3.2 g/dl (3.4-5.0); BILIRUBIN,TOTAL 0.5 mg/dL (0.2-1); BLOOD UREA NITROGEN 10.8 mg/dL (7-18); CALCIUM 8.4 mg/dL (8.5-10.1); MAGNESIUM 2.4 mg/dL (1.8-2.4); PHOSPHOROUS 3.9 mg/dL (2.5-4.9); POTASSIUM 3.7 mmol/L (3.5-5.1); TOT PROT 6.8 g/dl (6.4-8.2)
[2018-12-08 07:42] LABS: BASO % 1.2 % (0-2.0); EOS % 4.7 % (0-4.5); HEMATOCRIT 35.8 % (35.4-49); HEMOGLOBIN 11.9 GM/dL (11.7-16.9); LYMPH % 33.4 % (8-40); MCH 28.5 pg (25.7-33.7); MCHC 33.4 g/dl (32.0-35.9); MEAN CELL VOLUME 85.3 fl (80-96); MONO % 13.4 % (3.8-10.2); NEUT % 47.3 % (42.8-82.8); RBC 4.19 M/mm3 (4.00-5.60); RDW 15.5 % (11.9-15.9); WHITE BLOOD COUNT 4.9 K/mm3 (4.0-10.0)
[2018-12-08 08:43] LABS: PLATELET COUNT 259 K/MM3 (134-434)
[2018-12-08] MEDS: THIAMINE HCL 200 MG/2 ML VIAL IVPB SCH (10:19)
[2018-12-08] MEDS: FOLIC ACID 1 MG TABLET (FP) PO SCH (10:19)
[2018-12-08] MEDS: MULTIVITAMINS (DAILY MVI) TABLET (FP) PO SCH (10:19)
[2018-12-08] MEDS: PANTOPRAZOLE SODIUM 40 MG VIAL IVPUSH SCH (10:19)
[2018-12-08] MEDS: BUDESONIDE/FORMETEROL FUMARATE 160/4.5 mcg INHALER IH SCH ×2 (10:21→21:20)
--- NOTE | 2018-12-08 13:57 | PN ---
Progress Note (short form) - Note Progress Note: Subjective: feels better , no abd pain or diarrhe a Objective: Vital Signs: Last Vital Signs Temp Pulse Resp BP Pulse Ox 98.5 F 69 18 127/77 95 12/08/18 09:00 12/08/18 09:00 12/08/18 09:00 12/08/18 09:00 12/08/18 09:00 Laboratory Results - last 24 hr 12/08/18 12/08/18 05:20 05:20 WBC 4.9 RBC 4.19 Hgb 11.9 Hct 35.8 MCV 85.3 MCH 28.5 MCHC 33.4 RDW 15.5 Plt Count 259 MPV 8.0 Absolute Neuts (auto) 2.3 Neutrophils % 47.3 D Lymphocytes % 33.4 D Monocytes % 13.4 H Eosinophils % 4.7 H D Basophils % 1.2 Nucleated RBC % 0 Sodium 141 Potassium 3.7 Chloride 106 Carbon Dioxide 28 Anion Gap 7 L BUN 10.8 Creatinine 1.0 Est GFR (CKD-EPI)AfAm 95.73 Est GFR (CKD-EPI)NonAf 82.60 Random Glucose 83 Calcium 8.4 L Phosphorus 3.9 Magnesium 2.4 Total Bilirubin 0.5 AST 42 H ALT 80 H Alkaline Phosphatase 75 Total Protein 6.8 Albumin 3.2 L Physical Exam: NAD, MMM CV: RRR, no MRG Lungs: CTAB Abd: obese, soft, NT. NL BS. Ext: No edema. ASSESSMENT AND PLAN: 58 y/o man with h/o ETOH abuse , h/o upper GI bleed, Hiatal hernia, asthma, and Charcot's foot who presented with alcohol withdrawal 1- ETOH withdrawal: - cont ativan protocol. finishes tomorrow am - cont folic and thiamin 2- Alcoholic hepatitis: improved .monitor 3- Proctocolitis : - cont levaquin and flagyl x total of 7 days ( day 2) 4- heparin SQ dispo : can dc tomorrow. interested in rehab in [place]. social work to help, if no bed available tomorrow he can go home Visit type - Emergency Visit Emergency Visit: Yes ED Registration Date: 12/05/18 Care time: The patient presented to the Emergency Department on the above date and was hospitalized for further evaluation of their emergent condition. - New Patient This patient is new to me today: No - Critical Care Critical Care patient: No
[2018-12-08] MEDS ORDERED: ACETAMINOPHEN/CAFFEINE/BUTALBITAL 1 TAB PO ONE (16:16)
[2018-12-09] MEDS ORDERED: ACETAMINOPHEN/CAFFEINE/BUTALBITAL 1 TAB PO ONE (00:57)
[2018-12-09] MEDS ORDERED: PT OWN MED DRAWER 7, Y5N ONE (01:23)
[2018-12-09] MEDS: SODIUM CHLORIDE 1,000 ML IV SCH (01:31)
[2018-12-09] MEDS: HEPARIN NA (PORCINE) 5,000 UNITS/ML 1ML VIAL SQ SCH (01:32)
[2018-12-09] MEDS: LORazepam 0.5 MG TABLET PO SCH ×2 (01:32→06:43)
[2018-12-09] MEDS: BUDESONIDE/FORMETEROL FUMARATE 160/4.5 mcg INHALER IH SCH ×2 (06:46→10:04)
[2018-12-09] MEDS: THIAMINE HCL 200 MG/2 ML VIAL IVPB SCH (10:00)
[2018-12-09] MEDS: FOLIC ACID 1 MG TABLET (FP) PO SCH (10:03)
[2018-12-09] MEDS: MULTIVITAMINS (DAILY MVI) TABLET (FP) PO SCH (10:04)
--- NOTE | 2018-12-09 11:36 | DS ---
Physical Exam: SUBJECTIVE: Patient seen and examined at bedside. No overnight events, no complaints, completed EtOH withdrawal protocol. OBJECTIVE: Vital Signs Period Temp Pulse Resp BP Sys/Mendoza Pulse Ox Last 24 Hr 97.8 F-98.8 F 58-70 16-20 121-145/65-88 97-97 PHYSICAL EXAM GENERAL: NAD AAOx3 HEAD: Normal with no signs of trauma. EYES: EOMI Sclera Clear ENT: MMM LUNGS: CTAB HEART: RRR S1S2 ABDOMEN: Soft,NDNT EXTREMITIES: 2+ pulses, warm, well-perfused, no edema. NEUROLOGICAL: Cranial nerves II through XII grossly intact. Normal speech. No hand tremors appreciated PSYCH: Normal mood, normal affect. LABS HOSPITAL COURSE: MICROBIOLOGY UCx 12/06: contaminated C diff studies 12/07: negative IMAGING CXR 12/05: "There are no prior studies for comparison. There is an elevated left hemidiaphragm with some minimal atelectasis at the left base but no sign of infiltrate or failure. The mediastinum is not widened. The bones and soft tissues are intact. Correlation recommended." Contrast CT a/p 12/06: "Suspect mild proctocolitis." Date of Admission:12/05/18 Patient is a 58 y/o M w/ PMHx depression/anxiety, asthma, hepatitis C (treated) and EtOH abuse presents for EtOH withdrawal and LLQ pain. He was treated with Ativan protocol due to LFT elevation. Imaging was as above, on which basis empiric Levaquin/Flagyl was initiated. He completed withdrawal protocol, improved symptomatically, and was discharged on PO ABx with referrals for outpatient f/u to primary care and gastroenterology. Date of Discharge: 12/09/18 Minutes to complete discharge: 40 Discharge Summary Reason For Visit: ABDOMINAL PAIN, ALCOHOL DEPENDENCE WITH Current Active Problems Abdominal pain (Acute) Alcohol withdrawal (Acute) Condition: Stable - Instructions Diet, Activity, Other Instructions: You were hospitalized for alcohol withdrawal and abdominal pain. You were found to have large bowel inflammation on a CT scan and were treated with antibiotics. You began medical therapy for withdrawal and will complete it upon discharge to [facility]. You have also been referred for outpatient followup to gastroenterology for further evaluation of your bowel inflammation. Medical recommendations are below. If you experience any new or worsening fever, chills , abdominal pain, hallucinations, or any other concerning signs or symptoms, please return to the ED. Medical recommendations: Complete 4 doses of Ativan 1mg PO q6h today, 12/07/18. Ativan 0.5 mg q6h tomorrow, 12/08/18, 4 total doses Ativan 0.5 mg q4h PRN for withdrawal symptoms. continue levaquin and flagyl for 6 more days ( need levaquin at 6 pm today ) Folic acid 1mg PO daily Thiamine 100mg PO daily MVT 1 tablet daily Symbicort 160/4.5 2 puffs BID Protonix 40mg PO daily need follow up with Dr. Sandhu ( GI ) or follow up with your GI doctor in [place] fro a colonoscopy in 6-8 weeks to assess the inflammation in your colon. please follow with PCP in 1 week after discharge form [place] care Referrals: Lorie Velasquez MD [Other] Luís Sandhu DO [Staff Physician] - Disposition: HOME - Home Medications Comprehensive Discharge Medication List: Ambulatory Orders Budesonide/Formeterol Fumarate [SYMBICORT 160/4.5mcg -] 2 puff IH BID inhaler 12/07/18 Folic Acid - 1 mg PO DAILY tablet 12/07/18 LORazepam [Ativan] 0.5 mg PO Q4H PRN tablet MDD 3 12/07/18 LORazepam [Ativan] 0.5 mg PO Q6H 1 Days tablet MDD 2 12/07/18 LORazepam [Ativan] 1 mg PO 0500,1100,1700,2300 tablet MDD 4 12/07/18 Levofloxacin [Levaquin] 500 mg PO Q24H #6 tablet 12/07/18 Multivitamins [Multivit ([facility] Formulary)] 1 tab PO DAILY tab 12/07/18 Pantoprazole Sodium [Protonix -] 40 mg PO DAILY #30 tablet.ec 12/07/18 Thiamine HCl [Vitamin B-1] 100 mg PO DAILY #30 tablet 12/07/18 metroNIDAZOLE [Flagyl -] 500 mg PO Q8H #6 tablet 12/07/18 This patient is new to me today: No Emergency Visit: No Critical Care patient: No - Discharge Referral Referred to [facility] Med P.C.: No
[2018-12-09 11:37] VITALS: BP 131/66; PULSE 61; TEMP 98.3
--- NOTE | 2018-12-09 12:11 | PN ---
Teaching Attending Note Name of Resident: Robert Rinaldi ATTENDING PHYSICIAN STATEMENT I saw and evaluated the patient. I reviewed the resident's note and discussed the case with the resident. I agree with the resident's findings and plan as documented. SUBJECTIVE: No abd pain, no fever or chills. had 3 small soft Bm this am . he reports 3 Bm a day as his routine bowel habits OBJECTIVE: NAD, MMM CV: RRR, no MRG Lungs: CTAB Abd: obese, soft, NT. NL BS. Ext: No edema. ASSESSMENT AND PLAN: 58 y/o man with h/o ETOH abuse , h/o upper GI bleed, Hiatal hernia, asthma, and Charcot's foot who presented with alcohol withdrawal 1- ETOH withdrawal: -finished detox - cont folic and thiamin 2- Alcoholic hepatitis: 3- Proctocolitis : - cont levaquin and flagyl orally to complete 7 days . f/u with GI for colonoscopy in few weeks. pt will find GI in [facility].
== END 2018-12-09 11:46 | disposition home or self-care (01) | DRG 245 ==
LOC: JER 20:52 → JERBED 23:39 → J4W 12-06 20:07
PROVIDERS: ADMIT Internal Medicine; ATTEND Internal Medicine
PROC: HZ2ZZZZ Detoxification Services for Substance Abuse Treatment (ICD-10-PCS; principal; 2018-12-05)
DX: K51.30 Ulcerative (chronic) rectosigmoiditis without complications (principal); J45.909 Unspecified asthma, uncomplicated; E87.6 Hypokalemia; J98.11 Atelectasis; K57.90 Diverticulosis of intestine, part unspecified, without perforation or abscess without bleeding; F10.239 Alcohol dependence with withdrawal, unspecified; K70.10 Alcoholic hepatitis without ascites; K76.0 Fatty (change of) liver, not elsewhere classified; F41.8 Other specified anxiety disorders; K44.9 Diaphragmatic hernia without obstruction or gangrene; R74.0 Nonspecific elevation of levels of transaminase and lactic acid dehydrogenase [LDH]
CPT/HCPCS: 36415; 71045-TC-FY; 74177-TC; 80053; 80307; 81003; 83690; 83735; 84100; 85025; 85610; 85730; 87086; 87324; 87449; 93005; 93010; 99283-25; J1644; J7030